=== PATIENT | male | born 1955 | race Caucasian/White ===

== ENCOUNTER 2017-01-26 19:55 | Emergency (ER) | payer OTHER ==
[~2017-01-26] VITALS: Ht 185.4 cm; Wt 92.1 kg
[2017-01-26 20:44] VITALS: BP 171/81
--- NOTE | 2017-01-26 21:41 | RADIOLOGY REPORT ---
EXAMINATION: XR SHOULDER, LEFT CLINICAL INFORMATION: Pain post fall COMPARISON: None TECHNIQUE: Three views of the left shoulder. FINDINGS: There is abnormal widening of the left acromioclavicular joint space by approximately 1.2 cm. Mild degenerative changes are seen as well. No obvious fracture. Humeral head is well-seated within the glenoid fossa. Visualized left upper chest unremarkable. IMPRESSION: Abnormal widening of the left acromioclavicular joint space suggesting acromioclavicular dissociation in the acute setting.
--- NOTE | 2017-01-26 22:43 | ED UPPER/LOWER EXTREMITY COMPL ---
History of Present Illness General Chief Complaint: Shoulder Injury Stated Complaint: FALL, C/O L SHOULDER AND HEAD PAIN Source: patient, old records Exam Limitations: no limitations Vital Signs & Intake/Output Vital Signs & Intake/Output Vital Signs Date Time Temp Pulse Resp B/P B/P Pulse O2 O2 Flow FiO2 Mean Ox Delivery Rate 01/27 2044 98.3 86 20 171/81 98 Room Air Allergies Coded Allergies: No Known Allergies (01/26/17) Triage Note: TRIAGE: PT TO ER C/C L SHOULDER PAIN S/P FALL APPROX 7 PM. STATES FELL WHEN HE WAS WALKING THE DOG WHEN LEASH GOT TANGLED WITH ANOTHER DOGS LEASH AND HE TRIPPED LANDING ON HIS SHOULDER. STATES ALSO HIT HIS HEAD ON CONCRETE, -LOC AND DENIES ANY HEAD PAIN. HAS ICE PACK FROM [employer]. MEDICATED WITH TYLENOL PER PROTOCOL AND PATIENT REQUEST AT TRIAGE. Triage Nurses Notes Reviewed? yes Onset: Abrupt Duration: hour(s): (3), constant Timing: recent history Severity: mild, moderate Severity Numbers: 5 Pain/Injury Location: Left: Shoulder. Method of Injury: fall Modifying Factors: Improves With: pain medication, rest. Worsens With: movement. Associated Symptoms: none HPI: 61-year-old male presents to ER for evaluation complaining of left shoulder pain status post fall around 7:00 tonight when he was walking a dog landing on his left shoulder. He took Tylenol prior to arrival with improvement. He states he is able to move his shoulder however with discomfort. No neck or back pain he hit his head however there is no loss of consciousness he denies headache nausea or vomiting. Past History Travel History Traveled to [place] past 21 day No Medical History Any Pertinent Medical History? 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 No Review of Systems Review of Systems Constitutional: Reports: see HPI. All Other Systems: Reviewed and Negative Comments Review of systems: See HPI, All other systems negative. Constitutional, no chills no fever, no malaise no weight loss HEENT: No visual changes no sore throat no congestion, no ear pain Cardiovascular: No chest pain , no palpitation , no orthopnea Skin: no rashes, no change in skin Respiratory: No dyspnea no cough no sputum no hemoptysis GI: No nausea no vomiting, no diarrhea, no bloating/constipation : No dysuria No hematuria, no frequency, no discharge Muscle skeletal: No joint pain, no joint swelling, no back pain, no neck pain, Neurologic: No numbness no confusion, no headache Psych: No stress no depression,. Heme/endocrine: No bruising no bleeding Immunology: No lymphadenopathy Physical Exam Physical Exam General Appearance: well developed/nourished, no apparent distress, alert, awake , comfortable Comments: Well-developed well-nourished patient in no apparent distress. HEENT: Atraumatic, extraocular motion intact Neck: Supple, FROM Back: FROM Cardiovascular: Regular rate and rhythms no murmurs rubs or gallops, Respiratory: Chest nontender.There were no bony deformities, no asymmetry. No respiratory distress. Patient speaking in full complete sentences. Breath sounds clear to auscultation bilaterally: NO W/R/R Shoulder: Atraumatic/Stable. Limited range of motion secondary to pain no ecchymosis no deformity Elbow: Atraumatic/stable. FROM. No laxity Upper arm/Forearm: Atraumatic. Nontender. No edema, 5 out of 5 health plan specialist strength noted to bilateral upper extremities Hand/Wrist: Atraumatic/stable. Skin intact. FROM Pulses: Normal/equal radial pulses bilaterally. Brisk cap refill Lower Extremities: full range of motion Neuro: awake, alert, and oriented to person, place and time. There were no obvious focal neurologic abnormalities. Skin: Warm & dry;No appreciable rash on exposed skin Psych: Mood affect normal, normal memory normal judgment. Progress Differential Diagnosis: compartment syndrome, contusion, dislocation, fracture, sprain, tendon injury Plan of Care: Orders Procedure Date/time Status Durable Medical Equipment 01/26 4300 Active X-ray ordered from triage patient is declining anything for pain when offered I discussed with the patient at length all of their results. I had an extensive conversation regarding need for close follow up with orthopedist this week as well as return precautions. I answered all of their questions, they feel comfortable with the plan and follow-up care. (YARA PORTILLO) Diagnostic Imaging: Viewed by Me: Radiology Read. Discussed w/RAD: Radiology Read. Radiology Impression: PATIENT: JULIETH JOHNSON PRESENT AGE: 61 PATIENT ACCOUNT NO: [id number] : 56 LOCATION: [facility] ORDERING PHYSICIAN: AMANDA BOO DO (TBS) SERVICE DATE: 01/26/17 EXAM TYPE: RAD - XRY-SHOULDER COMPLETE-LEFT EXAMINATION: XR SHOULDER, LEFT CLINICAL INFORMATION : Pain post fall COMPARISON: None TECHNIQUE: Three views of the left shoulder. FINDINGS: There is abnormal widening of the left acromioclavicular joint space by approximately 1.2 cm. Mild degenerative changes are seen as well. No obvious fracture. Humeral head is well-seated within the glenoid fossa. Visualized left upper chest unremarkable. IMPRESSION: Abnormal widening of the left acromioclavicular joint space suggesting acromioclavicular dissociation in the acute setting. DICTATED BY: MELINDA DENG MD DATE/TIME DICTATED:01/26/172135 INSIGHTS ANALYST:JERAMIE DATE/TIME TRANSCRIBED:01/26/172135 CONFIDENTIAL, DO NOT COPY WITHOUT APPROPRIATE AUTHORIZATION. <Electronically signed in Other Vendor System> SIGNED BY: MELINDA DENG MD 01/26/172140 Departure Departure Time of Disposition: 2248 Disposition: HOME OR SELF CARE Condition: Stable Clinical Impression Primary Impression: Acromioclavicular joint separation Referrals: GODFREY ZHANG,JURGEN Felix (PCP/Family) JAKY MILNER MD Additional Instructions: Rest ice shoulder sling, Motrin for pain follow-up with orthopedist Dr. MILNER If symptoms persist return to ER with any concerns. Departure Forms: Customer Survey General Discharge Information
== END 2017-01-26 23:05 ==
LOC: ERH 19:55
DX: S43.102A Unspecified dislocation of left acromioclavicular joint, initial encounter (principal); W19.XXXA Unspecified fall, initial encounter; Y93.K1 Activity, walking an animal; Y92.9 Unspecified place or not applicable
CPT/HCPCS: 73030-LT